=== PATIENT | male | born 1955 | race Caucasian/White ===

== ENCOUNTER → 2018-10-16 | Outpatient (CLI) | payer OTHER ==
[~2018-10-16] VITALS: Ht 180.3 cm; Wt 113.4 kg
[~2018-10-16] MED LIST: ALPRAZOLAM; BUSPIRONE HCL10 MG PO; DOK100 MG PO; FINASTERIDE5 MG PO; FLOMAX0.4 MG PO; IBUPROFEN 800800 M1 PO; LIPITOR10 MG PO; OXYBUTYNIN CHLO10 MG PO; OXYIR5 MG PO; PAROXETINE HCL20 MG PO; TRAZODONE 150150 MG PO; ZANAFLEX2 M1 PO
[2018-10-16 10:11] VITALS: BP 134/86
--- NOTE | 2018-10-16 10:43 | NUR ---
Pain Clinic Assessment: 1. History of Osteoarthritis: Not Applicable History of Rheumatoid Arthritis: Not Applicable 2. Height: 5 ft. 11 in. 180.3 cm. Weight: 250.0 lb. oz. 113.400 kg. Patient's BMI: 34.9 3. Vital Signs: BP: 134/86 Pulse: 73 Resp: 18 Temp: 02 Sat: 97 ECG Mon: 4. Pain Intensity: 8 5. Fall Risk: Dizziness: N Needs help standing or walking: Y Fallen in the last 3 months: N Fall risk comments: 6. Patient on Blood Thinner: None 7. History of Hypertension: N 8. Opioid Therapy greater than 6 weeks: N Opiate Contract Signed: 9. Risk Assessment Tool Provided: MODERATE RISK 06/18 10. Functional Assessment Tool: 50 11. Recreational Drug Use: Never Drug Type: Tobacco Use: Current Every Day Smoker Tobacco Type: Cigarettes Amount or Packs/day: 2 PACKS How Many Years: 50 Alcohol Use: No Frequency: Quant:
--- NOTE | 2018-10-29 14:42 | HPC ---
[facility] [address] [place] [address] PAIN MANAGEMENT CONSULTATION Name: VINAY DUMAS [id number] Admission: 10/16/18 ������������������ Attend Phys: Quang Teresa DO Discharge: ������������������ Date of : 57 Report #: [id number] THIS REPORT FOR: //name// CC: Malinda Lopez ANP Quang Ortegakkjenn DATE OF SERVICE: 10/16/2018 REFERRING PHYSICIAN: Dr. Reba Lopez. CHIEF COMPLAINT: Low back pain, bilateral lower extremity pain with paresthesias. HISTORY OF PRESENT ILLNESS: As you know, the patient is a 62-year-old male who has had a longstanding history of low back pain, bilateral lower extremity pain for which he indicates pain began in 1987. The patient states he has undergone epidural injections, radiofrequency lesioning of the medial branch nerves with no prolonged benefit. He was recently seen by [facility]surgery of [facility], evaluated for his ongoing back pain issues, referred to our clinic to either trial epidural injections, facet injections or radiofrequency lesioning. The patient was determined a nonsurgical candidate at their visit of 09/23/2018. The patient indicates today pain is continuous and constant, describes the pain as shooting and sharp, places current pain score at 8/10, daily average at 10/10, worst pain has been is 10/10. The patient states that bending over and getting up tends to exacerbate symptoms; lying down, tends to improve pain. The patient indicates his pain began in 1987. He is on disability for his chronic back symptoms. He has been referred to our service to discuss interventional treatments. PAST MEDICAL HISTORY: 1. Asthma. 2. Hypertension. 3. Coronary artery disease. 4. Chronic obstructive pulmonary disease. 5. Emotional problems. 6. Degenerative joint disease. 7. Osteoarthritis. 8. History of stroke with no residual deficits. PAST SURGICAL HISTORY: 1. Bilateral hip arthroplasty. 2. Herniorrhaphy. 3. Coronary artery percutaneous stenting. [facility] [address] [place] [address] PAIN MANAGEMENT CONSULTATION Name: VINAY DUMAS Room #: REG [facility].#: [id number] Admission: 10/16/18 ������������������ Attend Phys: Quang Teresa DO Discharge: ������������������ Date of : 57 Report #: [id number] SOCIAL HISTORY: The patient smokes 2 packs of tobacco per day and has done so for 50 years, a total of [id number] history of smoking. He denies IV or illicit drug use. Denies any chronic alcohol use. He is on disability. He has been on disability for 31 years. He is not accompanied at today's visit. REVIEW OF SYSTEMS: Positive for fatigue, shortness of breath, walking, lying flat, heart trouble, asthma, wheezing, nocturia, dysuria, frequent urination, change of force or stream urination, sexual difficulty, numbness and tingling sensations, history of "heat stroke." Nervousness, depression, excessive thirst and urination. All other review of systems negative per 12-point review of systems other than those listed in history of present illness. Pain impact score 50/70, indicating severe interference of daily activities secondary to pain. ALLERGIES: NO REPORTED DRUG ALLERGIES. CURRENT MEDICATIONS: Paroxetine 20 mg once a day, oxybutynin ER 10 mg once a day, buspirone 10 mg b.i.d., ibuprofen 800 mg t.i.d., docusate sodium 100 mg once a day, tamsulosin 0.4 mg once a day, finasteride 5 mg once a day, trazodone 150 mg p.o. at bedtime, atorvastatin 10 mg per day, tizanidine 2 mg twice a day. IMAGING: No imaging available. PQRS: The patient has known arthritic changes of the bilateral hips, status post total hip arthroplasty, arthritis of the lumbar spine. No rheumatoid arthritis. He is placing pain intensity today at 8-10/10. He is a fall risk, but has not had a fall in the last 3 months. He is not on blood thinners, but is treated for dyslipidemia. He is not on opioids, but is in [id number]-vr-[id number] risk for opioid addiction based on our assessment tool. He is placing pain impact score at 50/70, severe interference of daily activities secondary to pain. PHYSICAL EXAMINATION: VITAL SIGNS: Blood pressure 134/86, pulse 73, respiratory rate 18 and unlabored. The patient is 97% on room air. Height 5 feet 11 inches tall, weight 250 pounds and BMI calculated 34.9. GENERAL: Well-developed, well-nourished, well-hydrated, exogenously obese 62-year-old male, appears much older than stated age, smells strongly of tobacco smoke, placing current pain score 8/10. HEENT: Normocephalic, atraumatic. Pupils equal, round, reactive to light. Extraocular muscles are intact. Speech fluent. He is deemed a fair historian. LUNGS: Decreased breath sounds bilaterally, prolonged expiratory phase. CARDIOVASCULAR: Regular. No appreciable gallop, no rub. ABDOMEN: Soft, obese, normoactive bowel sounds. EXTREMITIES: Show no cyanosis, and no edema, mild clubbing. [address] [address] PAIN MANAGEMENT CONSULTATION Name: VINAY DUMAS Room #: REG [facility] Hernandez#: [id number] Admission: 10/16/18 ������������������ Attend Phys: Quang Teresa DO Discharge: ������������������ Date of : 57 Report #: [id number] MUSCULOSKELETAL: Lower extremity strength is symmetrical 5/5. He is intact to light touch from L1 through S2 dermatomes. Bilateral deep tendon reflexes at patella and Achilles symmetrical, 2+/4. Seated straight leg raising negative. Supine straight leg raising negative. Noé's test negative. Modified Gaenslen's positive for axial low back pain. Ankle clonus negative. Babinski is negative. Stance, slightly forward flexed lumbar spine. ASSESSMENT: 1. Lumbosacral spondylosis without radiculopathy. 2. Lumbar degeneration. 3. Facet arthropathy of the lumbar spine. 4. Chronic intractable pain. PLAN: 1. Based on today's physical exam and history the patient has provided, the description the patient uses in regards to pain as well as the location of symptoms and the lack of any radiation of symptoms at present, the likely source of the patient's pain is the facet arthropathy noted in the lumbar spine. The bilateral lower extremity symptoms do not correlate to the findings of his CT examination. We do not have any central canal stenosis that would confirm his diagnosis of bilateral lower extremity symptoms. He is showing no radicular component of pain today and appears to be related to the facet joints of the lumbar spine. We discussed with the patient treatment options for facet arthropathy, the following was discussed with the patient. The patient was advised treatment options for lumbar facet arthropathy would include physical therapy, stretching exercise, core strengthening as well as concerted effort at weight loss. This in conjunction with smoking cessation could improve the overall pain the patient is experiencing. We discussed medication management utilizing nonsteroidal anti-inflammatory therapy only. Given the findings on his examination and the lack of any significant findings on his imaging, opioid medications would not be recommended. Neuropathic pain medications do not have a role for axial back pain, though Cymbalta has been quite beneficial at doses of 90-120 mg per day. We discussed the intra-articular facet injections, medial branch nerve blocks and radiofrequency lesioning as more definitive treatment options. Surgical options have been discussed, though the patient is not a candidate. After reviewing the risks and benefits of all proposed treatment options, the patient chose to continue with his current medication management. 2. The patient will return to see his PCP for continuation of medication management. He feels the medications are working beneficially for pain control despite the elevated pain report of 8-10/10. He has been evaluated by Neurosurgery and is not a surgical candidate. He is not a candidate in our estimation to remain on opioid medication and anti-inflammatory medications as well as Cymbalta would be recommended dosing treatment. We will defer to the primary team if they wish to initiate this type of treatment option. [address] [address] PAIN MANAGEMENT CONSULTATION Name: PITERVINAY A Room #: REG CLI David#: [id number] Admission: 10/16/18 ������������������ Attend Phys: Quang Teresa DO Discharge: ������������������ Date of : 57 Report #: [id number] Interventional treatments could be beneficial including intra-articular facet injections, medial branch nerve blocks and radiofrequency lesioning, but the patient indicates he has had these in the past and noted no benefit. Would not recommend that the patient undergo the procedures if he saw no improvement with prior treatment. 3. We wish to thank the referring nurse practitioner, Reba Lopez for the opportunity to see the patient in consultation. He has chosen to remain with his treatment of choice at this point, which is medication management. Again, we wish to thank you for the opportunity to see this patient in consultation. We will be returning his care to his PCP for continuation of current medication management if they wish to proceed. ��������������������������������������������� <ELECTRONICALLY SIGNED> ���������������������������������������� By: Quang Teresa DO ��������������������������������������������� 10/29/18 [id number] Quang Teresa DO /nt
== END ==
LOC: PAIN 06:53
DX: M47.816 Spondylosis without myelopathy or radiculopathy, lumbar region (principal); J45.909 Unspecified asthma, uncomplicated; I10 Essential (primary) hypertension; J44.9 Chronic obstructive pulmonary disease, unspecified; I25.10 Atherosclerotic heart disease of native coronary artery without angina pectoris; M19.90 Unspecified osteoarthritis, unspecified site; G89.4 Chronic pain syndrome; M51.36 Other intervertebral disc degeneration, lumbar region